=== PATIENT | female | born 1960 | race Caucasian/White ===

== ENCOUNTER 2024-06-25 02:29 | Emergency (ER) | payer OTHER, SELFPAY ==
[2024-06-25 02:31] VITALS: BP 154/86
--- NOTE | 2024-06-25 02:39 | ED.GENMED ---
History of Present Illness
<SHIRA Carter - Last Filed: 06/25/24 03:06>
General
Chief Complaint: Abdominal Pain
Time Seen by Provider: 06/25/24 02:39
History of Present Illness
History of Present Illness:
Patient is a 63 year old female presenting to the ED with complaints of abdominal pain and diarrhea. She states the diarrhea started 6 days ago and admits to having bowel movements at least 4-5 times per day. Patient claims it was yellow in color
and liquid. She tried Imodium but it did not help and eating aggravates a bowel movement. The pain was described as a bad cramping sensation. The pain was rated a 10/10. It is generalized pain across the entire abdomen and does not radiate anywhere.
The pain only comes when she has a bowel movement. She has been able to hold down fluids but hasn't been eating much. Patient denies vomiting, hematochezia, fever, shortness of breath, chest pain, palpitations.
Patient has a PMH of IBS that has resolved. She denies any recent travel and antibiotic use.
Review of Systems
<SHIRA Carter - Last Filed: 06/25/24 03:06>
Review of Systems
Constitutional: Reports no symptoms
Respiratory: Reports no symptoms
Cardiac: Reports no symptoms
ABD/GI: Reports abdominal pain and diarrhea
Phy Exam
<SHIRA Carter - Last Filed: 06/25/24 03:06>
Cardiovascular Exam
Cardiovascular Exam: regular rate/rhythm, no edema, no gallop, no JVD, no murmur and normal peripheral pulses
Pulmonary Exam
Pulmonary Exam: lungs clear, no respiratory distress, no rales, chest non tender, no crackles, no rhonchi, no stridor, no wheezing and no cough
Gastrointestinal Exam
Gastrointestinal Exam: normal bowel sounds, soft, no organomegaly, no pulsatile mass, non distended and tender
Palpation: generalized: Minimal tenderness
Auscultation of Abdomen: normal
Stool: yellow
<Alberto Marshall DO - Last Filed: 06/25/24 06:14>
Physical Exam
Physical Exam:
Physical Exam
General: no apparent distress, not acutely ill
Neck: No jaundice
Heart: s1/s2 regular rate and rhythm, no murmur. equal radial pulses.
Lungs: no acute respiratory distress. clear bilaterally
Abdomen: Soft nontender
Neuro: alert and oriented. no focal neurological deficits
Skin: no rash
Psychiatric: well kept. interactive and cooperative
Extremities: no edema.
Course
<ST EmmaPA - Last Filed: 06/25/24 03:06>
Orders/Labs/Results
Orders:
Orders
06/25/24 03:00
CDIFF [C difficile Antigen & Toxins] Urgent
ANKIT Source: Feces/Stool
Specimen Description:
Stool Culture Urgent
ANKIT Source: Feces/Stool
Specimen Description:
06/25/24 03:01
CT Abd/pelvis W Iv Cont Urgent
Comment:
Reason For Exam: pain diarhea
06/25/24 03:15
Complete Blood Count/With Diff Urgent
06/25/24 04:08
Comprehensive Metabolic Panel Urgent
Comment: REDRAW
Abnormal Lab Results
06/25/24 06/25/24
03:15 04:08
RBC 4.17 L 10^6/uL
(4.20-5.40)
Hct 35.6 L %
(37.0-47.0)
MPV 11.0 H fL
(7.4-10.4)
Glucose 110 H mg/dl
(70-99)
06/25/24 03:15
06/25/24 04:08
Vital Signs
Initial and Last Documented VS:
Initial Vital Signs
Temp Pulse Resp BP Pulse Ox
98.3 F 62 22 154/86 98
06/25/24 02:31 06/25/24 02:31 06/25/24 02:31 06/25/24 02:31 06/25/24 02:31
Last Documented Vital Signs
Temp Pulse Resp BP Pulse Ox
98.3 F 57 18 108/66 97
06/25/24 02:31 06/25/24 05:38 06/25/24 05:38 06/25/24 05:38 06/25/24 05:38
<Alberto Marshall, DO - Last Filed: 06/25/24 06:14>
Orders/Labs/Results
Orders:
Orders
06/25/24 03:00
CDIFF [C difficile Antigen & Toxins] Urgent
ANKIT Source: Feces/Stool
Specimen Description:
Stool Culture Urgent
ANKIT Source: Feces/Stool
Specimen Description:
06/25/24 03:01
CT Abd/pelvis W Iv Cont Urgent
Comment:
Reason For Exam: pain diarhea
06/25/24 03:15
Complete Blood Count/With Diff Urgent
06/25/24 04:08
Comprehensive Metabolic Panel Urgent
Comment: REDRAW
Abnormal Lab Results
06/25/24 06/25/24
03:15 04:08
RBC 4.17 L 10^6/uL
(4.20-5.40)
Hct 35.6 L %
(37.0-47.0)
MPV 11.0 H fL
(7.4-10.4)
Glucose 110 H mg/dl
(70-99)
06/25/24 03:15
06/25/24 04:08
Vital Signs
Initial and Last Documented VS:
Initial Vital Signs
Temp Pulse Resp BP Pulse Ox
98.3 F 62 22 154/86 98
06/25/24 02:31 06/25/24 02:31 06/25/24 02:31 06/25/24 02:31 06/25/24 02:31
Last Documented Vital Signs
Temp Pulse Resp BP Pulse Ox
98.3 F 57 18 108/66 97
06/25/24 02:31 06/25/24 05:38 06/25/24 05:38 06/25/24 05:38 06/25/24 05:38
<SHIRA Carter - Last Filed: 06/25/24 03:06>
MDM/Problems Addressed
Differential Diagnosis Includes:
Colitis, IBS, cdiff, infectious diarrhea
MDM/Problems Addressed:
Order CAT scan of abdomen, blood work, stool sample.
<SHIRA Carter - Last Filed: 06/25/24 03:06>
*Critical Care Note
Total Time (30-74mins, 75-104mins- exclusive of procedures): Not Applicable
<Alberto Marshall DO - Last Filed: 06/25/24 06:14>
*Radiology
Radiology exam reviewed: radiology read reviewed
*Pulse Oximetry
Patient hypoxic: no
*Derrick Man Interpretation
Rate: Derrick Man- N/A
<Alberto Marshall DO - Last Filed: 06/25/24 06:14>
Update Note
Update Note:
Update patient is nontoxic labs are noted unable to provide a stool specimen CT report noted colitis and proctitis no diarrhea since she has been here, she is scheduled for surgery this morning with orthopedics Dr. Alvares I did send a message to
his partner who is a call
ED Attending Note
<SHIRA Carter - Last Filed: 06/25/24 03:06>
-
Portions of this chart may have been created with voice recognition software.� Occasional wrong word or��sound alike� substitutions may have occurred due to the inherent limitations of voice recognition software.
<Alberto Marshall DO - Last Filed: 06/25/24 06:14>
ED Attending Note
Patient seen and examined by attending physician: Yes
ED Attending Note:
Seen with student examined independently 63-year-old female prior scheduled for elective total knee repair tomorrow presents with crampy abdominal pain and loose stools for 6 days no fever no blood in her stool her stool was yellow no
vomiting, no foreign travel no recent antibiotic use does have a history of IBS patient states she does not feel nervous about her surgery
Will check stool studies if she is able to provide provide supportive care, CT scan
Discharge Plan
Departure
Patient Disposition: Home (Routine Discharge)
Date of Disposition: 06/25/24
Time of Disposition: 06:13
Patient with high blood pressure during this ER visit?: No
Condition: Good
Covid-19: Not Applicable
Discharge Problem:
Colitis
Instructions: Diarrhea in teens and adults, Abdominal Pain
Referrals:
Migue Carrasquillo DO [Family Provider] -
Interventions
Interventions:
*Risk Screen - Suicide Last Done: 06/25/24 02:31
*General Assessment Last Done: 06/25/24 03:01
*Neglect/Abuse Screening Last Done: 06/25/24 02:31
*ED COVID-19 Vaccine History Last Done: 06/25/24 03:01
IK-Qyihdg-Bkhuxlkqql Assessment Last Done: 06/25/24 03:03
Discharge Date and Time
Print Language: OCCITAN
[2024-06-25 03:00] VITALS: BMI 25.9
[2024-06-25 03:50] LABS: % Basophils 0.4 % (0-2); % Eosinophils 1.5 % (0-6); % Immature Granulocytes 0.4 % (0-0.5); % Lymphocytes 35.9 % (20.5-51.1); % Monocytes 6.8 % (1.7-9.3); Absolute Eosinophils 0.1 10^3/uL (0-0.7); Absolute Lymphocytes 2.9 10^3/uL (1.2-3.4); Absolute Monocytes 0.6 10^3/uL (0.1-0.6); Absolute Neutrophils 4.4 10^3/uL (1.4-6.5); Hematocrit 35.6 % (37.0-47.0); Hemoglobin 12.2 g/dL (12.0-16.0); Mean Corp Hgb Conc. 34.3 g/dL (33.0-37.0); Mean Corpuscular Hgb 29.3 pg (27.0-31.0); Mean Corpuscular Volume 85.4 fL (81.0-99.0); Nucleated Red Blood Cells % 0 %; Platelet Count 254 10^3/uL (130-400); Red Blood Cell Count 4.17 10^6/uL (4.20-5.40); Red Cell Dist. Width 12.9 % (11.5-14.5); White Blood Cell Count 8.1 10^3/uL (4.8-10.8)
[2024-06-25 04:30] LABS: ALT (SGPT) 29 U/L (0-35); AST (SGOT) 31 U/L (14-36); Albumin 4.6 g/dl (3.5-5.0); Alkaline Phosphatase 68 U/L (38-126); Blood Urea Nitrogen 12 mg/dl (7-17); Calcium 10.1 mg/dl (8.4-10.2); Carbon Dioxide 28 mmol/L (22-30); Chloride 102 mmol/L (98-107); Estimated Creatinine Clearance 53 ml/min; Glucose 110 mg/dl (70-99); Potassium 3.7 mmol/L (3.5-5.1); Sodium 142 mmol/L (135-145); Total Bilirubin 0.8 mg/dl (0.2-1.3); Total Protein 6.8 g/dl (6.3-8.2); eGFR > 60.00
[2024-06-25 05:38] VITALS: BP 108/66
== END 2024-06-25 07:00 | disposition home or self-care (01) ==
LOC: EMR 02:29
PROVIDERS: EMERGENCY PHYSICIAN Emergency Medicine; FAMILY PHYSICIAN Family Medicine
DX: K52.9 Noninfective gastroenteritis and colitis, unspecified (principal); Z88.2 Allergy status to sulfonamides; Z88.8 Allergy status to other drugs, medicaments and biological substances; Z88.6 Allergy status to analgesic agent; Z88.1 Allergy status to other antibiotic agents; Z91.040 Latex allergy status; K62.89 Other specified diseases of anus and rectum
CPT/HCPCS: 99284; 74177; 80053; 85025; Q9967

== ENCOUNTER 2025-09-25 06:30 | Day surgery (SDC) | payer OTHER, SELFPAY | END 2025-09-25 16:04 | disposition home or self-care (01) | LOC: GI 06:30 | PROVIDERS: ATTENDING PHYSICIAN Internal Medicine | DX: K52.9 Noninfective gastroenteritis and colitis, unspecified (principal) | CPT/HCPCS: 45380; 88305 ==

== ENCOUNTER 2025-09-27 16:50 | Emergency (ER) | payer OTHER, SELFPAY ==
[2025-09-27 16:52] VITALS: BP 151/84
[2025-09-27 17:12] LABS: Hematocrit 36.7 % (37.0-47.0); Hemoglobin 11.9 g/dL (12.0-16.0); Mean Corp Hgb Conc. 32.4 g/dL (33.0-37.0); Mean Corpuscular Volume 86.6 fL (81.0-99.0); Nucleated Red Blood Cells % 0 %; Platelet Count 290 10^3/uL (130-400); Red Cell Dist. Width 13.6 % (11.5-14.5)
[2025-09-27 17:41] LABS: ALT (SGPT) 17 U/L (0-35); AST (SGOT) 20 U/L (14-36); Albumin 4.8 g/dl (3.5-5.0); Alkaline Phosphatase 93 U/L (38-126); Blood Urea Nitrogen 19 mg/dl (7-17); Calcium 10.1 mg/dl (8.4-10.2); Carbon Dioxide 24 mmol/L (22-30); Chloride 102 mmol/L (98-107); Glucose 133 mg/dl (70-99); Lipase 142 U/L (23-300); Potassium 4.3 mmol/L (3.5-5.1); Sodium 135 mmol/L (135-145); Total Protein 7.7 g/dl (6.3-8.2); eGFR > 60.00
[2025-09-27 18:11] VITALS: BMI 23.6
--- NOTE | 2025-09-27 18:21 | ED.GENMED ---
History of Present Illness
General
Chief Complaint: Abdominal Pain
Source: patient and spouse
Time Seen by Provider: 09/27/25 18:08
History of Present Illness
History of Present Illness:
This patient is a 65-year-old female who has been having diarrhea for the last month x 4 associated with weight loss. She saw her GI doctor this week and was scheduled for a colonoscopy which was performed on . There were biopsies
performed. She says she woke up and felt expectedly 'groggy', and did not notice abdominal pain until she got home. Since she got home, she notes persistent right-sided abdominal pain particular in the right upper quadrant that is worse when she
takes a deep breath. She thought it might be gas, but was advised to come to the ER given that it is persistent. There are no exacerbating relieving factors with the exception of taking a deep breath. She denies radiation of the pain, associated
back pain, chest pain, dyspnea, vomiting, fever, chills. She is slightly nauseous. She has not had a bowel movement since the colonoscopy. She is urinating as usual without pain or blood.
Past History
Past History
ED Past Medical History: GERD
ED Past Surgical History: Gynecological and Orthopedic
Social History
Tobacco: Non-smoker
Alcohol: None
Drug: None
Personal:
Living: with family
Phy Exam
Physical Exam
Physical Exam:
GENERAL: Alert , in no apparent distress
EYE: pupils equal and reactive, EOMI
NECK: Supple, no significant adenopathy.
ENT: o/p clr, mmm.
CARDIAC: Regular rate and rhythm .
LUNGS: Clear breath sounds bilaterally, no acute respiratory distress, no wheezes/rales/rhonchi
ABDOMEN: Soft, moderate right upper and right lower quadrant tenderness, no r/g, no cvat
NEUROLOGICAL: Alert and oriented, no focal neuro deficits
SKIN: Warm and dry, skin intact.
MUSCULOSKELETAL: No edema, well perfused.
PSYCH: Normal and appropriate interaction.
Course
Orders/Labs/Results
Orders:
Orders
09/27/25 17:03
Complete Blood Count/With Diff Urgent
Comprehensive Metabolic Panel Urgent
Lipase Urgent
09/27/25 18:20
Electrocardiogram (*1) Urgent
Reason for Study: Abdominal Pain
CT Abd/Pel (IV only)-DH only Urgent
Comment:
Reason For Exam: R sided pain, s/p colonscopy
EKG- Treatment ONCE
09/27/25 20:01
Add On- LAB Urgent
Tests Added?: d dimer
09/27/25 20:28
D-Dimer Urgent
Comment: CANNOT BE ADDED, NO BLUE TOP IN LAB
09/27/25 20:29
Urinalysis Reflex To Culture Urgent
Date Specimen was Collected: 09/27/25
Time Specimen was Collected: 20:22
Urine Microscopic Reflex Cult Urgent
09/27/25 20:57
CT Chest PE Study Urgent
Comment:
Reason For Exam: pain
Abnormal Lab Results
09/27/25 09/27/25 09/27/25
17:03 20:28 20:29
Hgb 11.9 L g/dL
(12.0-16.0)
Hct 36.7 L %
(37.0-47.0)
MCHC 32.4 L g/dL
(33.0-37.0)
MPV 11.2 H fL
(7.4-10.4)
Abs Immat Gran (auto) 0.1 H 10^3/uL
(0-0.05)
Absolute Lymphs (auto) 3.7 H 10^3/uL
(1.2-3.4)
D-Dimer 1.57 H ug/mlFEU
(0.00-0.50)
BUN 19 H mg/dl
(7-17)
Glucose 133 H mg/dl
(70-99)
Ur Occult Blood Reflex 1+ A
(Negative)
Urine Bacteria (Reflex) Few A
(Negative)
09/27/25 17:03
09/27/25 17:03
Vital Signs
Initial and Last Documented VS:
Initial Vital Signs
Temp Pulse Resp BP Pulse Ox
97.6 F 69 20 151/84 98
09/27/25 16:52 09/27/25 16:52 09/27/25 16:52 09/27/25 16:52 09/27/25 16:52
Last Documented Vital Signs
Temp Pulse Resp BP Pulse Ox
98 F 57 14 142/84 98
09/27/25 20:32 09/27/25 23:34 09/27/25 23:34 09/27/25 23:34 09/27/25 23:34
*Pulse Oximetry
SaO2: 98
Oxygen Mode of Delivery: Room air
Patient hypoxic: no
*Critical Care Note
Total Time (30-74mins, 75-104mins- exclusive of procedures): Not Applicable
Update Note
Update Note:
Patient presents to the Emergency Department with ____abdominal pain
Number and Complexity of Problems Addressed at the Encounter
� Chronic conditions affecting care:
� Acute Exacerbation and/or Progression of Chronic Illness:
� Differential Diagnosis includes: But not limited to perforation, cholelithiasis, cholecystitis, appendicitis, bowel obstruction, PE,. etc.
Amount and/or Complexity of Data to be Reviewed and Analyzed
� I performed an independent evaluation of and my interpretation is:
EKG: Read by me, normal sinus rhythm, normal rate, normal axis, no acute ischemia
CT:No CT evidence for free air in the abdomen.
Mild wall thickening of the ascending colon with minor pericolonic inflammation, and mild wall thickening of portions of the descending colon and sigmoid colon. Findings could be postprocedural or secondary to a nonspecific colitis. Recommend
correlation with colonoscopy findings.
Xrays:
Laboratory Studies: Generally unremarkable, nonspecific mild anemia
Other:
� Review of other/old records reveals:
� Clinical information was obtained by an independent historian:
� Prescriptions/Medications Considered but not given:
� Further testing considered but not performed:
Risk of Complications and/or Morbidity or Mortality of Patient Management
� Social determinants of health affecting care:
� Discussion with other providers (PCP, Hospitalists, Consultants, etc):
� Escalation of care including admission/observation vs risk of discharge considered: Case discussed with Dr. Mark Boykin from GI, CT history and physical reviewed with him and patient contacted him before arrival here. He does
not recommend treating for colitis which I agree with, recommends patient take MiraLAX and follow-up with GI which I also agree is quite reasonable. There is stool noted on the right side on her CAT scan, symptoms thought to be related to
constipation, no other worrisome etiologies noted such as hepatic hematoma, free air to suggest perforation, appendicitis, cholecystitis, etc.
D-dimer positive, CTA no evidence of PE with overall fair quality contrast bolus, no evidence of alveolar consolidation concerning for pneumonia no dissection. Incidental bilateral thyroid nodules, nodular thickening of both adrenal glands without
discrete nodule degenerative changes noted of spine old rib fractures. Patient will be informed of these incidental findings with recommendations for close follow-up.
ED Attending Note
-
Portions of this chart may have been created with voice recognition software.� Occasional wrong word or��sound alike� substitutions may have occurred due to the inherent limitations of voice recognition software.
Discharge Plan
Departure
Patient Disposition: Home (Routine Discharge)
Date of Disposition: 09/27/25
Time of Disposition: 23:16
Patient with high blood pressure during this ER visit?: Yes
Condition: Good
Discharge Problem:
Abdominal pain
Instructions: Abdominal Pain, BLOOD PRESSURE
Prescriptions:
No Action
sucralfate [Carafate] 100 mg/mL Suspension
10 ml PO MEALS
Rx Instructions:
take 1 hour prior to meal
pantoprazole 20 mg Tablet,Delayed Release (Dr/Ec)
20 mg PO Q48H
Rx Instructions:
taper off pantoprazole to take only carafate
acetaminophen [Tylenol Extra Strength] 500 mg Capsule
1,000 mg PO DAILY PRN (Reason: knee pain)
Referrals:
UNKNOWN - PT DOES,NOT KNOW [Unknown Provider]
Activity Restrictions/Additional Instructions:
IF YOU DEVELOP DIZZINESS, CHEST PAIN, TROUBLE BREATHING, INCREASING/NEW/PERSISTENT PAIN, VOMITING, BLEEDING, FEVER, OR OTHER WORRISOME SIGNS, GO TO THE ER IMMEDIATELY! PLEASE CONSIDER MIRALAX, TWICE A DAY, FOR NEXT 2-3 DAYS. YOU HAVE FINDINGS ON
YOUR CAT SCAN THAT REQUIRE CLOSE FOLLOW UP. PLEASE CONTACT YOUR PRIMARY CARE DOCTOR TO MANAGE THESE FINDINGS.
Interventions
Interventions:
*General Assessment Last Done: 09/27/25 18:11
*Neglect/Abuse Screening Last Done: 09/27/25 18:11
*ED COVID-19 Vaccine History Last Done: 09/27/25 18:11
*ED Influenza Vaccine History Last Done: 09/27/25 18:11
[facility] Risk Assessment Tool Last Done: 09/27/25 18:11
*Risk Screen - Suicide (C-SSRS) Last Done: 09/27/25 16:58
*Nursing Disposition Last Done: 09/27/25 23:40
UN-Sppbpm-Ngvybqpmhm Assessment Last Done: 09/27/25 20:38
Discharge Date and Time
Discharge Date/Time: 09/27/25 23:40
Print Language: WELSH
[2025-09-27 20:00] VITALS: BP 131/72
--- NOTE | 2025-09-27 20:32 | EDRN ---
Pt had a colonoscopy on and biopises were obtained. Pt has had constant RLQ abd pain since colonscopy done and she has not had a BM since that day. No n/v, fever/chills/cough, urinary symptoms, cp, sob.
[2025-09-27 20:35] LABS: Urine Character Clear (Clear)
[2025-09-27 20:41] LABS: Urine Red Blood Cell 0-2 /HPF (0-2); Urine White Cell 0-2 /HPF (0-5)
[2025-09-27 20:47] LABS: D-Dimer 1.57 ug/mlFEU (0.00-0.50)
[2025-09-27 21:00] VITALS: BP 132/85
[2025-09-27 22:00] VITALS: BP 105/71
[2025-09-27 23:34] VITALS: BP 142/84
== END 2025-09-27 23:40 | disposition home or self-care (01) ==
LOC: EMR 16:50
PROVIDERS: EMERGENCY PHYSICIAN Emergency Medicine; FAMILY PHYSICIAN Family Medicine
DX: R10.11 Right upper quadrant pain (principal); E04.2 Nontoxic multinodular goiter; R03.0 Elevated blood-pressure reading, without diagnosis of hypertension; K21.9 Gastro-esophageal reflux disease without esophagitis
CPT/HCPCS: 99284; 71275; 74177; 80053; 81003; 81015; 83690; 85025; 85379; 93005; Q9967